=== PATIENT | male | born 1980 | race Hispanic/Latino ===

== ENCOUNTER 2019-05-15 19:19 | Emergency (ER) | payer SELFPAY ==
--- NOTE | 2019-05-15 20:12 | Emergency Department Report ---
Blank Doc - Documentation Documentation: This is a 39-year-old male that presents with right elbow pain and lower back pain s/p fall. This initial assessment/diagnostic orders/clinical plan/treatment(s) is/are subject to change based on patient's health status, clinical progression and re- assessment by fellow clinical providers in the ED. Further treatment and workup at subsequent clinical providers discretion. Patient/guardians urged not to elope from the ED as their condition may be serious if not clinically assessed and managed. Initial orders include: 1- Patient sent to [facility] for further evaluation and treatment 2- xrays
[2019-05-15 20:14] VITALS: BP 130/86
[2019-05-15] MEDS ORDERED: PERCOCET 5/325 PO STA (23:28)
--- NOTE | 2019-05-15 23:45 | Emergency Department Report ---
ED Fall HPI - General Chief Complaint: Fall Stated Complaint: RT SIDE INJURY Time Seen by Provider: 05/15/19 20:11 Source: patient Mode of arrival: Ambulatory - History of Present Illness Complaint: fall -: Sudden Fall Witnessed: no Place Fall Occurred: home Loss of Consciousness: none Prolonged Down Time?: no Symptoms Prior to Fall: none Location: back Location - Extremities: Right: Arm Severity: moderate Severity scale (0 -10): 4 Quality: dull Associated Symptoms: denies: headache, neck pain, numbness, abdominal pain, hematuria, lightheaded - Related Data Previous Rx's Medication Instructions Recorded Last Taken Type Ketorolac [Toradol] 10 mg PO Q6H PRN #15 tablet 05/15/19 Unknown Rx methOCARBAMOL [Robaxin TAB] 750 mg PO Q8H PRN #14 tablet 05/15/19 Unknown Rx Allergies Allergy/AdvReac Type Severity Reaction Status Date / Time No Known Allergies Allergy Unverified 05/15/19 19:27 ED Review of Systems ROS: Stated complaint: RT SIDE INJURY Other details as noted in HPI Comment: All other systems reviewed and negative ED Past Medical Hx - Past Medical History Previous Medical History?: No - Surgical History Past Surgical History?: No - Social History Smoking Status: Current Every Day Smoker - Medications Home Medications: Home Medications Medication Instructions Recorded Confirmed Last Taken Type Ketorolac [Toradol] 10 mg PO Q6H PRN #15 tablet 05/15/19 Unknown Rx methOCARBAMOL [Robaxin TAB] 750 mg PO Q8H PRN #14 tablet 05/15/19 Unknown Rx ED Physical Exam - General Limitations: No Limitations General appearance: alert, in no apparent distress - Head Head exam: Present: atraumatic, normocephalic - Eye Eye exam: Present: normal appearance - ENT ENT exam: Present: mucous membranes moist - Neck Neck exam: Present: normal inspection - Respiratory Respiratory exam: Present: normal lung sounds bilaterally. Absent: respiratory distress - Cardiovascular Cardiovascular Exam: Present: regular rate, normal rhythm. Absent: systolic murmur, diastolic murmur, rubs, gallop - GI/Abdominal GI/Abdominal exam: Present: soft, normal bowel sounds - Rectal Rectal exam: Present: deferred - Extremities Exam Extremities exam: Present: normal inspection, tenderness, normal capillary refill. Absent: pedal edema, joint swelling, calf tenderness - Expanded Upper Extremity Exam Right Shoulder Exam: Present: full ROM. 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 4. Mild decreased sensation to light touch). Absent: deformity, crepidus, dislocation, tenderness over anatomical snuff box, pain with axial thumb loading Hand Wrist exam: Present: normal inspection, full ROM - Back Exam Back exam: Present: normal inspection, tenderness. Absent: CVA tenderness (R), CVA tenderness (L), muscle spasm, vertebral tenderness - Neurological Exam Neurological exam: Present: alert, oriented X3, CN II-XII intact, normal gait. Absent: abnormal gait - Psychiatric Psychiatric exam: Present: normal affect, normal mood. Absent: depressed, anxious, flat affect, manic, homicidal ideation, suicidal ideation - Skin Skin exam: Present: warm, dry, intact, normal color. Absent: rash, cyanosis, diaphoretic, erythema, petechiae, pallor, abrasion ED Course Vital Signs 05/15/19 20:12 Temperature 100.0 F H Pulse Rate 72 Respiratory 16 Rate Blood Pressure 130/86 O2 Sat by Pulse 98 Oximetry ED Medical Decision Making - Medical Decision Making Status post fall on the right side and landed on a bar on his right humerus and then to his lower back and buttock region. Since the fall a couple days ago he's been having some pain to the right arm and numbness and tingling to the forearm and hand and decreased range of motion involving the right forearm and wrist. He had a hematoma on the lateral left prescription of the humerus which is began resolving. Plan is to treat with ice and anti-inflammatories and use a sling and have follow-up with also a notable in 3-5 days. Critical care attestation.: If time is entered above; I have spent that time in minutes in the direct care of this critically ill patient, excluding procedure time. ED Disposition Clinical Impression: Arm contusion, Fall, Lower back pain Disposition: TO HOME OR SELFCARE Is pt being admited?: No Does the pt Need Aspirin: No Condition: Stable Instructions: Acute Low Back Pain (ED), Paresthesia (ED), Contusion in Adults (ED) Prescriptions: methOCARBAMOL [Robaxin TAB] 750 mg PO Q8H PRN #14 tablet PRN Reason: Pain, Moderate (4-6) Ketorolac [Toradol] 10 mg PO Q6H PRN #15 tablet PRN Reason: Pain Referrals: LIGIA LORENZ MD [Primary Care Provider] - 3-5 Days
[2019-05-15] MEDS ORDERED: PERCOCET 5/325 ONE (23:48)
--- NOTE | 2019-05-16 10:04 | XRay Report ---
RIGHT HUMERUS 2 VIEWS INDICATION / CLINICAL INFORMATION: pain s/p fall. COMPARISON: None available. FINDINGS: Negative. Signer Name: Colin Sinclair MD Signed: 05/15/2019 9:32 PM Workstation Name: [email or web address]
--- NOTE | 2019-05-16 10:04 | XRay Report ---
LUMBAR SPINE 3 VIEWS INDICATION / CLINICAL INFORMATION: pain. COMPARISON: None available. FINDINGS: Negative. Signer Name: Colin Sinclair MD Signed: 05/15/2019 9:33 PM Workstation Name: [id number]
--- NOTE | 2019-05-16 10:04 | XRay Report ---
RIGHT ELBOW 4 VIEWS INDICATION / CLINICAL INFORMATION: pain s/p fall. COMPARISON: None available. FINDINGS: Negative. Signer Name: Colin Sinclair MD Signed: 05/15/2019 9:34 PM Workstation Name: [id number]
== END 2019-05-16 00:29 | disposition home or self-care (01) ==
LOC: ED 19:19
DX: S40.021A Contusion of right upper arm, initial encounter (principal); M54.5 Low back pain; F17.200 Nicotine dependence, unspecified, uncomplicated; W18.39XA Other fall on same level, initial encounter; Y93.89 Activity, other specified; Y92.098 Other place in other non-institutional residence as the place of occurrence of the external cause; Y99.8 Other external cause status
CPT/HCPCS: 72100; 99284

== ENCOUNTER 2021-01-30 18:43 | Emergency (ER) | payer SELFPAY ==
[2021-01-30 19:22] VITALS: BP 119/88
--- NOTE | 2021-01-30 20:11 | XRay Report ---
LEFT ANKLE 3 VIEWS 194 INDICATION: pain and swelling COMPARISON: None available. FINDINGS: Lateral soft tissue swelling is seen. Lucency is seen in the posterior calcaneus inferiorly which possibly is old and may have mild cortication along the border but I cannot state this with ce rtainty. I do not see decrease in Boehler's angle. Mild sclerosis is seen in the posterior to mid francisco javier tral calcaneus, possibly representing impaction but no other lucencies are noted on any image. No oth er fractures or dislocations are seen. Clinical attention to the calcaneal area is suggested. Signer Name: Claudio Francois MD Signed: 01/30/2021 8:07 PM Workstation Name: [id number]
--- NOTE | 2021-01-30 21:06 | XRay Report ---
LEFT FOOT 3 VIEW(S) INDICATION / CLINICAL INFORMATION: fall with pain COMPARISON: Radiographs of the right ankle and calcaneus 01/30/2021. FINDINGS: BONES / JOINT(S): Displaced fracture noted through the calcaneal body. Additional suspected fracture noted of the cuboid, CT may be helpful for confirmation. No dislocation. No significant arthritis. SOFT TISSUES: Diffuse soft tissue swelling and edema noted of the mid and hindfoot. ADDITIONAL FINDINGS: None. Signer Name: Kam Garnett MD Signed: 01/30/2021 9:01 PM Workstation Name: [id number]
--- NOTE | 2021-01-30 21:07 | XRay Report ---
LEFT CALCANEUS 2 VIEW(S) INDICATION / CLINICAL INFORMATION: pain with swelling COMPARISON: Radiographs of the foot and ankle 01/30/2021. FINDINGS: BONES / JOINT(S): Comminuted and displaced fracture through the calcaneal body. Suspected fracture pa rtially visualized of the cuboid. No dislocation. No significant arthritis. SOFT TISSUES: Generalized soft tissue swelling and edema noted of the mid and hindfoot. ADDITIONAL FINDINGS: None. Signer Name: Kam Garnett MD Signed: 01/30/2021 9:03 PM Workstation Name: [id number]
--- NOTE | 2021-01-30 21:15 | Emergency Department Report ---
ED Lower Extremity HPI - General Chief Complaint: Extremity Injury, Lower Stated Complaint: SWOLLEN FOOT/ANKLE Time Seen by Provider: 01/30/21 19:03 Source: patient Mode of arrival: Ambulatory Limitations: Physical Limitation - History of Present Illness Initial Comments: This is a 40-year-old male nontoxic, well nourished in appearance, no acute signs of distress presents to the ED with c/o of left foot and ankle pain with swelling 1 day. Patient stated that he had a ground-level fall. Patient denies any other injuries or trauma. Patient denies any numbness, tingling, fever, chills, nausea, vomiting, chest pain, shortness of breath, headache, stiff neck. Patient stated has some swelling. Patient stated has some decreased range of motion and weight bearing due to pain. Patient denies any allergies or significant past medical history. MD Complaint: ankle injury, foot injury -: days(s) Injury: Ankle: Left, Foot: Left Place: street/outdoors Severity: mild Severity scale (0 -10): 8 Improves With: immobilization Worsens With: weight bearing, movement, palpation Context: fall Associated Symptoms: swelling, unable to bear weight. denies: snap/pop sensation, numbness, tingling, ambulatory - Related Data Previous Rx's Medication Instructions Recorded Last Taken Type Ketorolac [Toradol] 10 mg PO Q6H PRN #15 tablet 05/15/19 Unknown Rx methOCARBAMOL [Robaxin TAB] 750 mg PO Q8H PRN #14 tablet 05/15/19 Unknown Rx Naproxen 500 mg PO Q8H PRN #20 tablet 01/30/21 Unknown Rx Allergies Allergy/AdvReac Type Severity Reaction Status Date / Time No Known Allergies Allergy Verified 05/16/19 10:11 ED Review of Systems ROS: Stated complaint: SWOLLEN FOOT/ANKLE Other details as noted in HPI Constitutional: denies: chills, fever Eyes: denies: eye pain, eye discharge, vision change ENT: denies: ear pain, throat pain Respiratory: denies: cough, shortness of breath, wheezing Cardiovascular: denies: chest pain, palpitations Endocrine: no symptoms reported Gastrointestinal: denies: abdominal pain, nausea, diarrhea Genitourinary: denies: urgency, dysuria Musculoskeletal: denies: back pain, joint swelling, arthralgia Skin: denies: rash, lesions Neurological: denies: headache, weakness, paresthesias Psychiatric: denies: anxiety, depression Hematological/Lymphatic: denies: easy bleeding, easy bruising ED Past Medical Hx - Past Medical History Previous Medical History?: No - Surgical History Past Surgical History?: Yes Additional Surgical History: eye, jaw, spleen, Hip - Social History Smoking Status: Current Every Day Smoker Substance Use Type: Alcohol, Marijuana - Medications Home Medications: Home Medications Medication Instructions Recorded Confirmed Last Taken Type Ketorolac [Toradol] 10 mg PO Q6H PRN #15 tablet 05/15/19 Unknown Rx methOCARBAMOL [Robaxin TAB] 750 mg PO Q8H PRN #14 tablet 05/15/19 Unknown Rx Naproxen 500 mg PO Q8H PRN #20 tablet 01/30/21 Unknown Rx ED Physical Exam - General Limitations: Physical Limitation General appearance: alert, in no apparent distress - Head Head exam: Present: atraumatic, normocephalic - Eye Eye exam: Present: normal appearance - Neck Neck exam: Present: normal inspection, full ROM - Respiratory Respiratory exam: Absent: respiratory distress - Cardiovascular Cardiovascular Exam: Present: regular rate - Extremities Exam Extremities exam: Present: full ROM (with pain), tenderness, normal capillary refill, joint swelling, other (Negative Hill test). Absent: pedal edema, calf tenderness - Expanded Lower Extremity Exam Left Hip exam: Present: normal inspection, full ROM. Absent: tenderness, swelling Upper Leg exam: Present: normal inspection, full ROM. Absent: tenderness, swelling Knee exam: Present: normal inspection, full ROM. Absent: tenderness, swelling Lower Leg exam: Present: normal inspection, full ROM. Absent: tenderness, swelling Ankle exam: Present: full ROM, tenderness, swelling. Absent: abrasion, laceration, ecchymosis, deformity, crepidus, dislocation, erythema, anterior draw sign Foot/Toe exam: Present: full ROM, tenderness, swelling. Absent: abrasion, laceration, ecchymosis, deformity, crepidus, dislocation, erythema, amputation, puncture wound, foreign body, calcaneal tenderness, tenderness at base of 5th metatarsal, nail avulsion, subungual hematoma Neuro vascular tendon exam: Present: no vascular compromise Gait: Positive: unable to bear weight - Back Exam Back exam: Present: normal inspection, full ROM. Absent: tenderness, CVA tenderness (R), CVA tenderness (L), muscle spasm, paraspinal tenderness, vertebral tenderness, rash noted - Neurological Exam Neurological exam: Present: alert, oriented X3 - Psychiatric Psychiatric exam: Present: normal affect, normal mood - Skin Skin exam: Present: warm, dry, intact, normal color. Absent: rash ED Course Vital Signs 01/30/21 19:20 Temperature 99.2 F Pulse Rate 106 H Respiratory 20 Rate Blood Pressure 119/88 O2 Sat by Pulse 94 Oximetry - Reevaluation(s) Reevaluation #1: 01/30/21 21:20 Patient is speaking in full sentences with no signs of distress noted. ED Lower Extremity MDM - Radiology Data [address] [address] XRay Report Signed Patient: GLEN DURAN MR#: [id number] 6 : 1980 Acct:[id number] Age/Sex: 40 / M ADM Date: 01/30/21 Loc: ED Attending Dr: Ordering Physician: ELIZABETH GONGORA NP Date of Service: 01/30/21 Procedure(s): XR calcaneous 2+V LT Accession Number(s): [id number] cc: ELIZABETH GONGORA NP Fluoro Time In Minutes: LEFT CALCANEUS 2 VIEW(S) INDICATION / CLINICAL INFORMATION: pain with swelling COMPARISON: Radiographs of the foot and ankle 01/30/2021. FINDINGS: BONES / JOINT(S): Comminuted and displaced fracture through the calcaneal body. Suspected fracture partially visualized of the cuboid. No dislocation. No significant arthritis. SOFT TISSUES: Generalized soft tissue swelling and edema noted of the mid and hindfoot. ADDITIONAL FINDINGS: None. Signer Name: Kam Villaseñor MD Signed: 01/30/2021 9:03 PM Workstation Name: [id number] Transcribed By: Dictated By: KAM VILLASEÑOR Electronically Authenticated By: KAM VILLASEÑOR Signed Date/Time: 01/30/212102 DD/ 01 TD/TT: [address] [address] XRay Report Signed Patient: GLEN DURAN MR#: [id number] 6 : 1980 Acct:[id number] Age/Sex: 40 / M ADM Date: 01/30/21 Loc: ED Attending Dr: Ordering Physician: ELIZABETH GONGORA NP Date of Service: 01/30/21 Procedure(s): XR foot 3+V LT Accession Number(s): [id number] cc: ELIZABETH GONGORA NP Fluoro Time In Minutes: LEFT FOOT 3 VIEW(S) INDICATION / CLINICAL INFORMATION: fall with pain COMPARISON: Radiographs of the right ankle and calcaneus 01/30/2021. FINDINGS: BONES / JOINT(S): Displaced fracture noted through the calcaneal body. Additional suspected fracture noted of the cuboid, CT may be helpful for confir mation. No dislocation. No significant arthritis. SOFT TISSUES: Diffuse soft tissue swelling and edema noted of the mid and hindfoot. ADDITIONAL FINDINGS: None. Signer Name: Kam Villaseñor MD Signed: 01/30/2021 9:01 PM Workstation Name: [id number] Transcribed By: Dictated By: KAM VILLASEÑOR Electronically Authenticated By: KAM VILLASEÑOR Signed Date/Time: 01/30/212100 DD/ 57 TD/TT: [facility] [address] [place] [address] XRay Report Signed Patient: GLEN DURAN MR#: [id number] 6 : 1980 ct:[id number] Age/Sex: 40 / M ADM Date: 01/30/21 Loc: ED Attending Dr: Ordering Physician: RISSA MORENO MD Date of Service: 01/30/21 Procedure(s): XR ankle 3+V LT Accession Number(s): [id number] cc: RISSA MORENO MD Fluoro Time In Minutes: LEFT ANKLE 3 VIEWS 1941 INDICATION: pain and swelling COMPARISON: None available. FINDINGS: Lateral soft tissue swelling is seen. Lucency is seen in the posterior calcaneus inferiorly which possibly is old and may have mild cortication along the border but I cannot state this with certainty. I do not see decrease in Boehler's angle. Mild sclerosis is seen in the posterior to mid central calcaneus, possibly representing impaction but no other lucencies are noted on any image. No other fractures or dislocations are seen. Clinical attention to the calcaneal area is suggested. Signer Name: Claudio Francois MD Signed: 01/30/2021 8:07 PM Workstation Name: [id number] Transcribed By: CLAYTON Dictated By: Claudio Francois MD Electronically Authenticated By: Claudio Francois MD Signed Date/Time: 01/30/212006 DD/ 04 TD/TT: - Medical Decision Making This is a 40-year-old male that presents with left calcaneal fracture. Patient is stable and was examined by me. I referred patient to an orthopedic doctor for further evaluation for possible MRI. X-ray has been obtained and dictated by the radiologist. Patient is notified of the x-ray report with noted by the patient. Patient received a posterior short leg splint. Patient does have crutches currently from home. Patient was instructed to RICE therapy. Patient is discharged with naproxen. At time of discharge, the patient does not seem toxic or ill in appearance. No acute signs of distress noted. Patient agrees to discharge treatment plan of care. No further questions noted by the patient. Critical care attestation.: If time is entered above; I have spent that time in minutes in the direct care of this critically ill patient, excluding procedure time. ED Disposition Clinical Impression: Left calcaneal fracture Qualifiers: Encounter type: initial encounter Calcaneus location: unspecified portion of calcaneus Fracture type: closed Fracture alignment: nondisplaced Qualified Code(s): S92.002A - Unspecified fracture of left calcaneus, initial encounter for closed fracture Disposition: DC- TO HOME OR SELFCARE Is pt being admited?: No Does the pt Need Aspirin: No Condition: Stable Instructions: Cast or Splint Care, Adult, [id number], Calcaneal Fracture Repair Surgery, Care After Additional Instructions: Follow-up with a orthopedic doctor in 3-5 days or if symptoms worsen and continue return to emergency room as soon as possible. No physical activity that extremity until cleared by orthopedic doctor Prescriptions: Naproxen 500 mg PO Q8H PRN #20 tablet PRN Reason: Pain , Severe (7-10) Referrals: PRIMARY CAREMD [Primary Care Provider] - 3-5 Days CARINA DOOLEY MD [Staff Physician] - 3-5 Days Forms: Work/School Release Form(ED) Time of Disposition: 21:23
== END 2021-01-30 21:53 | disposition home or self-care (01) ==
LOC: ED 18:43
DX: S92.002A Unspecified fracture of left calcaneus, initial encounter for closed fracture (principal); F17.200 Nicotine dependence, unspecified, uncomplicated; F12.10 Cannabis abuse, uncomplicated; Z79.899 Other long term (current) drug therapy; W18.30XA Fall on same level, unspecified, initial encounter; Y93.89 Activity, other specified; Y92.89 Other specified places as the place of occurrence of the external cause; Y99.8 Other external cause status
CPT/HCPCS: 99283